=== PATIENT | female | born 1990 | race Caucasian/White ===

== ENCOUNTER 2019-02-16 05:01 | Emergency (ER) | payer OTHER ==
[~2019-02-16] VITALS: Ht 154.9 cm; Wt 53.0 kg
[2019-02-16 05:06] VITALS: BP 114/77; TEMP 98.3
[2019-02-16 05:44] LABS: COLLECTION METHOD CLEAN CATCH
[2019-02-16 05:46] LABS: BASO % 0.5 % (0.0-2.0); EOS # 0.4 (0.0-0.7); EOS % 4.8 % (0-4.0); GRAN # 3.1 (1.4-6.5); GRAN % 36.8 % (42.2-75.2); HEMATOCRIT 40.4 % (37.0-47.0); HEMOGLOBIN 12.9 g/dl (12.5-16.0); LYMPH # 4.1 (1.2-3.4); LYMPH % 49.1 % (20.0-51.0); MEAN CELL VOLUME 83 fl (80.0-100.0); MEAN CORPUSCULAR HEMOGLOBIN 27 pg (27.0-31.0); MEAN CORPUSCULAR HGB CONC 32 g/dl (33.0-37.0); MEAN PLATELET VOLUME 10.1 fl (7.4-10.4); MONO # 0.7 (0.1-0.6); MONO % 8.4 % (1.7-9.3); PLATELET COUNT 225 K/mm3 (130-400); RED BLOOD COUNT 4.87 M/mm3 (4.10-5.30)
[2019-02-16 05:54] LABS: PH 6 (5-8); SQUAMOUS EPITHELIAL 0-2 /hpf; URINE APPEARANCE Clear; URINE BACTERIA None Seen /hpf; URINE BILIRUBIN Negative (NEGATIVE); URINE BLOOD Negative (NEGATIVE); URINE COLOR Colorless; URINE GLUCOSE Negative (NEGATIVE); URINE KETONE Negative (NEGATIVE); URINE LEUKOCYTE ESTERASE Negative (NEGATIVE); URINE NITRATE Negative (NEGATIVE); URINE PROTEIN(semi-quant) Negative (NEGATIVE); URINE RBC 0-2 /hpf; URINE UROBILINOGEN Negative (NEGATIVE)
[2019-02-16 05:57] LABS: ALANINE AMINOTRANSFERASE < 6 U/L (9-52); ALBUMIN 3.7 gm/dL (3.5-5.0); ALKALINE PHOSPHATASE 60 U/L (50-136); ANION GAP 9 mmol/L (7-16); AST,SGOT 23 U/L (15-37); BILIRUBIN,TOTAL 0.2 mg/dL (0.0-1.0); BLOOD UREA NITROGEN 13 mg/dL (7-17); CALCIUM 8.9 mg/dL (8.4-10.2); CARBON DIOXIDE 25 mmol/L (22-30); CHLORIDE 105 mmol/L (98-107); CREATININE, serum 0.68 (0.52-1.25); GLUCOSE 91 mg/dL (74-106); LIPASE 176 U/L (23-300); POTASSIUM 4.1 mmol/L (3.4-5.0); SODIUM 139 mmol/L (137-145); TOTAL PROTEIN 7.1 gm/dL (6.4-8.2)
[2019-02-16 06:04] LABS: C-REACTIVE PROTEIN < 0.5 mg/dL (0.0-0.9)
[2019-02-16 06:12] LABS: HCG,QUANTITATIVE < 2 mIU/mL (0-5)
[2019-02-16 08:58] VITALS: PULSE 80
== END 2019-02-16 08:58 | disposition home or self-care (01) ==
LOC: COL.ER 05:01
PROVIDERS: Emergency Medicine
DX: R10.2 Pelvic and perineal pain (principal)
CPT/HCPCS: J1885; J2405; J7030

== ENCOUNTER 2019-05-09 22:44 | Emergency (ER) | payer OTHER ==
[~2019-05-09] VITALS: Ht 165 cm; Wt 63.0 kg
[2019-05-09 22:47] VITALS: BP 129/76; TEMP 99
[2019-05-10 00:03] LABS: BASO # 0.1 (0.0-0.2); BASO % 0.7 % (0.0-2.0); EOS # 0.5 (0.0-0.7); EOS % 6.3 % (0-4.0); GRAN # 2.9 (1.4-6.5); GRAN % 40.4 % (42.2-75.2); HEMOGLOBIN 12.5 g/dl (12.5-16.0); LYMPH # 3.1 (1.2-3.4); LYMPH % 43.2 % (20.0-51.0); MEAN CELL VOLUME 84 fl (80.0-100.0); MEAN CORPUSCULAR HEMOGLOBIN 27 pg (27.0-31.0); MEAN CORPUSCULAR HGB CONC 32 g/dl (33.0-37.0); MEAN PLATELET VOLUME 9.6 fl (7.4-10.4); MONO # 0.6 (0.1-0.6); MONO % 8.8 % (1.7-9.3); PLATELET COUNT 240 K/mm3 (130-400); RED BLOOD COUNT 4.64 M/mm3 (4.10-5.30)
[2019-05-10 00:09] LABS: ALANINE AMINOTRANSFERASE 11 U/L (9-52); ALBUMIN 3.8 gm/dL (3.5-5.0); ALKALINE PHOSPHATASE 55 U/L (50-136); ANION GAP 7 mmol/L (7-16); AST,SGOT 23 U/L (15-37); BILIRUBIN,TOTAL < 0.1 mg/dL (0.0-1.0); BLOOD UREA NITROGEN 12 mg/dL (7-17); CALCIUM 8.9 mg/dL (8.4-10.2); CARBON DIOXIDE 26 mmol/L (22-30); CHLORIDE 106 mmol/L (98-107); CREATININE, serum 0.67 (0.52-1.25); GLUCOSE 96 mg/dL (74-106); POTASSIUM 3.6 mmol/L (3.4-5.0); SODIUM 139 mmol/L (137-145); TOTAL PROTEIN 6.9 gm/dL (6.4-8.2)
[2019-05-10 00:25] LABS: HCG,QUANTITATIVE 82 mIU/mL (0-5)
[2019-05-10 00:37] LABS: COLLECTION METHOD CLEAN CATCH
[2019-05-10 00:44] LABS: MUCOUS Present /lpf; PH 7 (5-8); SQUAMOUS EPITHELIAL None Seen /hpf; URINE APPEARANCE Clear; URINE BACTERIA Rare /hpf; URINE BILIRUBIN Negative (NEGATIVE); URINE BLOOD 3+ (NEGATIVE); URINE COLOR Straw; URINE GLUCOSE Negative (NEGATIVE); URINE KETONE Negative (NEGATIVE); URINE LEUKOCYTE ESTERASE Negative (NEGATIVE); URINE NITRATE Negative (NEGATIVE); URINE PROTEIN(semi-quant) Negative (NEGATIVE); URINE UROBILINOGEN Negative (NEGATIVE)
[2019-05-10 01:39] VITALS: PULSE 82
== END 2019-05-10 01:39 | disposition home or self-care (01) ==
LOC: COL.ER 22:44
PROVIDERS: Physician Assistant
DX: O20.0 Threatened abortion (principal); Z3A.32 32 weeks gestation of pregnancy
CPT/HCPCS: J2405; J7030